=== PATIENT | male | born 1945 | race Caucasian/White ===

== ENCOUNTER 2023-11-06 09:42 | Inpatient (IN) | payer OTHER, MEDICAID ==
[~2023-11-06] VITALS: Ht 175.3 cm; Wt 81.2 kg
[2023-11-06 10:15] LABS: BASOPHILS % 0.6 % (0.0-2.0); EOSINOPHILS % 6.3 % (0.0-5.0); HEMATOCRIT. 40.9 % (42.0-52.0); HEMOGLOBIN. 13.6 g/dL (14.0-18.0); LYMPHOCYTES % 27.2 % (20.0-50.0); MEAN CORPUSCULAR HEMOGLOBIN 30.8 pg (28.0-32.0); MEAN CORPUSCULAR HGB CONC 33.3 g/dL (31.0-37.0); MEAN CORPUSCULAR VOLUME 92.6 fL (80.0-94.0); MEAN PLATELET VOLUME 8.7 fl (7.4-10.4); MONOCYTES % 6.5 % (2.0-8.0); NEUTROPHILS % 59.4 % (40.0-76.0); PLATELET 192 x1000/uL (130-400); RED BLOOD CELL COUNT 4.41 mill/uL (4.7-6.1); RED CELL DISTRIBUTION WIDTH 14.3 % (11.6-14.6); WHITE BLOOD COUNT 5.5 x1000/uL (4.5-11.0)
[2023-11-06 10:21] LABS: CHLORIDE 105 mEq/L (98-107); POTASSIUM 3.7 mEq/L (3.5-5.1); SODIUM 139 mEq/L (136-145)
[2023-11-06 10:22] LABS: CARBON DIOXIDE 29 mEq/L (21-32)
[2023-11-06 10:27] LABS: CREATININE 0.7 mg/dL (0.6-1.3); GLUCOSE 121 mg/dL (70-105); UREA NITROGEN BLOOD 11 mg/dL (9-23)
[2023-11-06 10:28] LABS: TROPONIN I HIGH SENSITIVITY 5 ng/L (3.0-53)
[2023-11-06 12:38] LABS: TROPONIN I HIGH SENSITIVITY 5 ng/L (3.0-53)
[2023-11-07] VITALS: BP_SYST 118; BP_SYST 125; BP_DIAS 54; BP_DIAS 64; PULSE 55; PULSE 57; RESP 18; TEMP 97.5; TEMP 98
[2023-11-07] MEDS ORDERED: ACETAMINOPHEN 325MG TABLET PO PRN (02:00)
[2023-11-07 04:00] VITALS: BP 141/69; PULSE 63; RESP 18; TEMP 98.4
[2023-11-07 07:46] LABS: BASOPHILS % 0.4 % (0.0-2.0); EOSINOPHILS % 6.5 % (0.0-5.0); HEMATOCRIT. 37.9 % (42.0-52.0); HEMOGLOBIN. 12.6 g/dL (14.0-18.0); LYMPHOCYTES % 27.6 % (20.0-50.0); MEAN CORPUSCULAR HEMOGLOBIN 30.4 pg (28.0-32.0); MEAN CORPUSCULAR HGB CONC 33.2 g/dL (31.0-37.0); MEAN CORPUSCULAR VOLUME 91.6 fL (80.0-94.0); MONOCYTES % 7.9 % (2.0-8.0); NEUTROPHILS % 57.6 % (40.0-76.0); PLATELET 169 x1000/uL (130-400); RED BLOOD CELL COUNT 4.14 mill/uL (4.7-6.1); RED CELL DISTRIBUTION WIDTH 14.6 % (11.6-14.6); WHITE BLOOD COUNT 6.7 x1000/uL (4.5-11.0)
[2023-11-07 07:50] LABS: CHLORIDE 105 mEq/L (98-107); POTASSIUM 3.8 mEq/L (3.5-5.1); SODIUM 139 mEq/L (136-145)
[2023-11-07 07:51] LABS: CALCIUM 8.7 mg/dL (8.7-10.4); CARBON DIOXIDE 27 mEq/L (21-32)
[2023-11-07 07:55] LABS: TROPONIN I HIGH SENSITIVITY 5 ng/L (3.0-53)
[2023-11-07 07:56] LABS: CREATININE 0.6 mg/dL (0.6-1.3); GLUCOSE 116 mg/dL (70-105); TRIGLYCERIDE 70 mg/dL (0-150); UREA NITROGEN BLOOD 12 mg/dL (9-23)
[2023-11-07 07:57] LABS: LDL CHOLESTEROL 33 mg/dL (5-100)
[2023-11-07 07:58] LABS: CHOLESTEROL 80 mg/dL (<200); HDL CHOLESTEROL 33 mg/dL (>55); THYROID STIMULATING HORMONE 2.13 uIU/mL (0.55-4.78)
[2023-11-07 08:00] VITALS: BP 132/64; PULSE 54; RESP 16; TEMP 97.6
[2023-11-07 12:00] VITALS: BP 118/61; PULSE 63; RESP 16; TEMP 97.2
[2023-11-07 16:00] VITALS: BP 110/55; PULSE 55; RESP 18; TEMP 97
[2023-11-07 20:00] VITALS: BP 120/58; PULSE 60; RESP 18; TEMP 98.3
[2023-11-08] VITALS: BP 120/88; PULSE 71; RESP 18; TEMP 98.6
[2023-11-08 04:00] VITALS: BP 119/76; PULSE 67; RESP 19; TEMP 98.1
[2023-11-08 07:54] LABS: CLARITY URINE CLEAR (CLEAR); COLOR URINE YELLOW (YELLOW); GLUCOSE URINE NEGATIVE (NEGATIVE); KETONES URINE NEGATIVE (NEGATIVE); LEUKOCYTE ESTERASE URINE NEGATIVE (NEGATIVE); NITRITE URINE NEGATIVE (NEGATIVE); OCCULT BLOOD URINE NEGATIVE (NEGATIVE); PH URINE 6.5 (4.5-8.0); PROTEIN URINE NEGATIVE (NEGATIVE); SPECIFIC GRAVITY URINE 1.012 (1.005-1.030)
[2023-11-08 08:00] VITALS: BP 119/73; PULSE 57; PULSE 65; RESP 19; RESP 20; TEMP 96.4; TEMP 97.5
[2023-11-08 12:00] VITALS: BP 123/78; PULSE 57; RESP 20; TEMP 96.4
[2023-11-08] MEDS ORDERED: GENTAMICIN/NS IRRIGATION 500 ML IR NR (12:15)
[2023-11-08 12:49] LABS: BASOPHILS % 0.7 % (0.0-2.0); HEMATOCRIT. 40.6 % (42.0-52.0); HEMOGLOBIN. 13.5 g/dL (14.0-18.0); MEAN CORPUSCULAR HEMOGLOBIN 30.6 pg (28.0-32.0); MEAN CORPUSCULAR HGB CONC 33.2 g/dL (31.0-37.0); MEAN CORPUSCULAR VOLUME 92.2 fL (80.0-94.0); MONOCYTES % 7.5 % (2.0-8.0); NEUTROPHILS % 45.8 % (40.0-76.0); PLATELET 169 x1000/uL (130-400); RED BLOOD CELL COUNT 4.41 mill/uL (4.7-6.1); RED CELL DISTRIBUTION WIDTH 14.7 % (11.6-14.6); WHITE BLOOD COUNT 4.7 x1000/uL (4.5-11.0)
[2023-11-08 13:00] LABS: CARBON DIOXIDE 27 mEq/L (21-32); CHLORIDE 107 mEq/L (98-107); SODIUM 139 mEq/L (136-145)
[2023-11-08 13:01] LABS: CALCIUM 8.9 mg/dL (8.7-10.4)
[2023-11-08 13:06] LABS: CREATININE 0.6 mg/dL (0.6-1.3); GLUCOSE 102 mg/dL (70-105); UREA NITROGEN BLOOD 12 mg/dL (9-23)
[2023-11-08] MEDS ORDERED: CEFAZOLIN SODIUM 1000MG/VIAL ONE (13:35)
[2023-11-08] MEDS ORDERED: LIDOCAINE HCL 1% 20ML VIAL ONE (13:35)
[2023-11-08] MEDS ORDERED: MIDAZOLAM HCL 2 MG/2 ML VIAL ONE ×2 (13:36→14:06)
[2023-11-08] MEDS ORDERED: FENTANYL CITRATE/PF 50MCG/ML 2ML VIAL ONE (13:36)
[2023-11-08] MEDS ORDERED: DIPHENHYDRAMINE 50MG/ML VIAL ONE (13:47)
[2023-11-08] MEDS ORDERED: ATROPINE SULFATE 1MG/10ML SYR ONE (13:57)
[2023-11-08] MEDS ORDERED: EPINEPHRINE 0.1MG/ML (1:10,000) 10ML SYR ONE (13:57)
[2023-11-08] MEDS ORDERED: HYDRALAZINE 20MG/ML VIAL ONE (15:20)
[2023-11-08] MEDS ORDERED: MORPHINE SULFATE 2 MG/ML INJ (NOT FOR IM USE) IV PRN (15:45)
[2023-11-08] MEDS ORDERED: HYDROCODONE/ACETAMINOPHEN 5/325MG TABLET PO PRN (15:45)
[2023-11-08] MEDS: DOCUSATE SODIUM 100MG CAPSULE PO SCH (15:45)
[2023-11-08 16:00] VITALS: BP 129/64; PULSE 73; RESP 18; TEMP 98
[2023-11-08] MEDS ORDERED: NALOXONE HCL 0.4MG/ML VIAL IV PRN (16:00)
[2023-11-08 20:00] VITALS: BP 136/72; PULSE 61; RESP 18; TEMP 98.2
[2023-11-08] MEDS: CEFAZOLIN 1000MG PREMIX 50ML IV SCH (21:02)
[2023-11-08] MEDS ORDERED: CEFAZOLIN SODIUM 1000MG/VIAL IV SCH (22:00)
[2023-11-09] VITALS: BP 122/72; PULSE 68; RESP 15; TEMP 98.3
[2023-11-09 04:00] VITALS: BP 116/68; PULSE 79; RESP 12; TEMP 98.4
[2023-11-09 06:49] LABS: CHLORIDE 106 mEq/L (98-107); SODIUM 140 mEq/L (136-145)
[2023-11-09 06:50] LABS: CALCIUM 8.8 mg/dL (8.7-10.4); CARBON DIOXIDE 26 mEq/L (21-32)
[2023-11-09 06:55] LABS: CREATININE 0.6 mg/dL (0.6-1.3)
[2023-11-09 06:56] LABS: GLUCOSE 117 mg/dL (70-105); UREA NITROGEN BLOOD 15 mg/dL (9-23)
[2023-11-09 07:02] LABS: BASOPHILS % 0.4 % (0.0-2.0); EOSINOPHILS % 5.3 % (0.0-5.0); HEMATOCRIT. 41.4 % (42.0-52.0); HEMOGLOBIN. 13.6 g/dL (14.0-18.0); LYMPHOCYTES % 20.9 % (20.0-50.0); MEAN CORPUSCULAR HEMOGLOBIN 30.4 pg (28.0-32.0); MEAN CORPUSCULAR HGB CONC 32.8 g/dL (31.0-37.0); MEAN CORPUSCULAR VOLUME 92.7 fL (80.0-94.0); MONOCYTES % 8.7 % (2.0-8.0); NEUTROPHILS % 64.7 % (40.0-76.0); PLATELET 179 x1000/uL (130-400); RED BLOOD CELL COUNT 4.47 mill/uL (4.7-6.1); RED CELL DISTRIBUTION WIDTH 14.5 % (11.6-14.6); WHITE BLOOD COUNT 6.8 x1000/uL (4.5-11.0)
[2023-11-09 08:00] VITALS: BP 122/70; PULSE 77; RESP 19; TEMP 97.8
[2023-11-09] MEDS ORDERED: LEVO-65 MT (11:41)
[2023-11-09 12:00] VITALS: BP 130/72; PULSE 78; RESP 18; TEMP 97.7
[2023-11-09] MEDS: LEVOFLOXACIN 500MG PREMIX 100 ML IV SCH (13:32)
[2023-11-09] MEDS: FUROSEMIDE 40MG/4ML VIAL IVP NR (13:32)
[2023-11-09] MEDS: LEVOFLOXACIN 250MG PREMIX 50 ML IV SCH (13:33)
[2023-11-09 16:00] VITALS: BP 121/73; PULSE 76; RESP 12; TEMP 98
[2023-11-09 17:34] VITALS: BP 132/86; PULSE 87; TEMP 98; O2SAT 97
== END 2023-11-09 17:58 | disposition home or self-care (01) | DRG 244 ==
LOC: ER 09:42 → 5WST 13:05 → EDBEDREQ 13:33 → EDBEDREQTM 13:33 → 7EST 23:43 → 3WST 11-08 15:43
PROVIDERS: ADMIT Internal Medicine; ATTEND Internal Medicine
PROC: 0JH606Z Insertion of Pacemaker, Dual Chamber into Chest Subcutaneous Tissue and Fascia, Open Approach (ICD-10-PCS; principal; 2023-11-08)
PROC: 02H63JZ Insertion of Pacemaker Lead into Right Atrium, Percutaneous Approach (ICD-10-PCS; 2023-11-08)
PROC: 02HK3JZ Insertion of Pacemaker Lead into Right Ventricle, Percutaneous Approach (ICD-10-PCS; 2023-11-08)
DX: I44.2 Atrioventricular block, complete (principal); I10 Essential (primary) hypertension; E11.9 Type 2 diabetes mellitus without complications; E78.00 Pure hypercholesterolemia, unspecified; K21.9 Gastro-esophageal reflux disease without esophagitis; R00.1 Bradycardia, unspecified; Z82.49 Family history of ischemic heart disease and other diseases of the circulatory system; Z87.891 Personal history of nicotine dependence
CPT/HCPCS: 33208; 36415; 71045; 80048; 80061; 81003; 83880; 84439; 84443; 84484; 85025; 93005; 93306; 99285; A4565; C1785; C1898; J0360; J0461; J0690; J1200; J1940; J1956; J2250; J3010; J3490